=== PATIENT | male | born 2000 | race African-American/Black ===

== ENCOUNTER 2019-07-07 20:26 | Emergency (ER) | payer SELFPAY ==
[~2019-07-07] VITALS: Ht 182.9 cm; Wt 86.4 kg
[2019-07-08] MEDS ORDERED: IBUPROFEN 600 MG TABLET PO ONE
[2019-07-08] MEDS ORDERED: ACETAMINOPHEN 500 MG TABLET PO ONE
[2019-07-08 00:03] VITALS: BP 125/83
== END 2019-07-08 00:49 | disposition home or self-care (01) ==
LOC: EMS 20:26
DX: M54.5 Low back pain (principal); M25.551 Pain in right hip; V43.52XA Car driver injured in collision with other type car in traffic accident, initial encounter; Y93.89 Activity, other specified; Y92.89 Other specified places as the place of occurrence of the external cause; Y99.8 Other external cause status

== ENCOUNTER 2023-10-22 07:16 | Emergency (ER) | payer MEDICAID, OTHER ==
[~2023-10-22] VITALS: Ht 182.9 cm; Wt 97.7 kg
[2023-10-22 07:34] VITALS: TEMP 98.5
[2023-10-22 09:15] VITALS: BP 126/63; PULSE 78; RESP 16
[2023-10-22] MEDS: KETOROLAC TROMETHAMINE 60 MG/2 ML VIAL IM ONE (09:15)
== END 2023-10-22 09:37 | disposition home or self-care (01) ==
LOC: EMS 07:16
DX: S00.83XA Contusion of other part of head, initial encounter (principal); Y04.0XXA Assault by unarmed brawl or fight, initial encounter; Y93.89 Activity, other specified; Y92.89 Other specified places as the place of occurrence of the external cause; Y99.8 Other external cause status
CPT/HCPCS: 99285; 70450; 70486; 96372; J1885